=== PATIENT | male | born 1955 | race Caucasian/White ===

== ENCOUNTER 2017-04-30 09:28 | Emergency (ER) | payer OTHER ==
[~2017-04-30] VITALS: Ht 177.8 cm; Wt 93.0 kg
[~2017-04-30 09:28] MED LIST: LISI-363 PO
[2017-04-30 09:30] VITALS: BP 130/80; PULSE 69; RESP 14; TEMP 98.3; O2SAT 98
[2017-04-30] MEDS ORDERED: LISI10TA3 PO (09:42)
--- NOTE | 2017-04-30 09:57 | PD ---
HPI Chief Complaint: Injury Time Seen by Provider: 09:54 Travel History International Travel<30 days: No Contact w/Intl Traveler<30days: No Traveled to known affect area: No History of Present Illness HPI 61 YO M presents to the ED for evaluation of right foot pain. Onset this AM at 6pm. Patient states that he was pulling a bouncer behind him, the dumpster partially rolled over his right foot. He reports hearing a few loud cracks at the time of the accident. He has been ambulatory. He denies pain at rest but states that weightbearing and ambulation elicits pain. Denies numbness, tingling, weakness, limitations to range of motion of the extremity. Denies previous injury to that area. No treatment at the home. PFSH Past Medical History Cardiovascular Problems: Yes Diminished Hearing: No Hypertension: Yes Tetanus Vaccination: < 5 Years Influenza Vaccination: Yes Past Surgical History Oral Surgery: Yes Tonsillectomy: Yes Social History Alcohol Use: Yes ("very little") Tobacco Use: No Substance Use: Yes (marijuana) Allergies-Medications (Allergen,Severity, Reaction): Coded Allergies: No Known Allergies (Unverified , 04/30/17) Reported Meds & Prescriptions Reported Meds & Active Scripts Active Reported Lisinopril 10 Mg Tab 10 Mg PO DAILY Review of Systems Except as stated in HPI: all other systems reviewed are Neg Physical Exam Narrative GENERAL: Well-nourished, well-developed pleasant white male in no acute distress. SKIN: Focused skin assessment warm/dry. HEAD: Normocephalic. EYES: No scleral icterus. No injection or drainage. NECK: Supple, trachea midline. No JVD or lymphadenopathy. CARDIOVASCULAR: Regular rate and rhythm without murmurs, gallops, or rubs. RESPIRATORY: Breath sounds equal bilaterally. No accessory muscle use. GASTROINTESTINAL: Abdomen soft, non-tender, nondistended. MUSCULOSKELETAL: No cyanosis, or edema. FOCUSED RIGHT LOWER EXTREMITY EXAM: 2+ DP pulse. Patient retains full, active, painless range of motion of the ankle. Wiggling the toes elicits pain. There is tenderness to palpation along the lateral midfoot. No base of the fifth tenderness. No edema. No ecchymosis. Neurovascularly intact. BACK: Nontender without obvious deformity. No CVA tenderness. Data Data Last Documented VS Vital Signs Date Time Temp Pulse Resp B/P Pulse Ox O2 Delivery O2 Flow Rate FiO2 04/30/17 09:43 Room Air 04/30/17 09:30 98.3 69 14 130/80 98 Orders Foot, Complete ([id number]) (04/30/17 09:57) Ice/Cold Pack (04/30/17 09:57) Ibuprofen (Motrin) (04/30/17 10:00) MDM Medical Decision Making Medical Screen Exam Complete: Yes Emergency Medical Condition: Yes Differential Diagnosis Musculoskeletal pain versus sprain versus fracture versus other Narrative Course 61 YO M presents to the ED for evaluation of right foot pain. Onset this AM at 6pm. Patient states that he was pulling a bouncer behind him, the dumpster partially rolled over his right foot. He reports hearing a few loud cracks at the time of the accident. He has been ambulatory. He denies pain at rest but states that weightbearing and ambulation elicits pain. Denies numbness, tingling, weakness, limitations to range of motion of the extremity. Denies previous injury to that area. Vitals reviewed. Physical exam reveals a pleasant white male in no acute distress. There is tenderness to palpation of the lateral mid foot but the physical exam is otherwise unremarkable. Patient was administered ice pack and 100 mg ibuprofen. X-ray of the foot reveals no acute bony injury by my read. This is contusion of the foot. 4 inch Avel was applied. He is instructed to rest, ice, elevate the foot, return to normal, gentle activities as tolerated, take medications as prescribed, follow up with the computer instructor should symptoms persist. He indicated understanding of instructions and is agreeable to the care plan. He is stable and discharged home. Diagnosis Primary Impression: Contusion of right foot Qualified Code: S90.31XA - Contusion of right foot, initial encounter Referrals: Advertising Statistical Clerk Patient Instructions: Contusion in Adults (ED), General Instructions Additional Instructions: Rest, ice, elevate the extremity. Apply ice no longer than 10-15 minutes per hour a few times a day. 800 mg ibuprofen up to 3 times a day as needed to reduce pain and inflammation. Return to normal, gentle activity as tolerated. No running, jumping activities for the next few weeks. Follow up with computer instructor or your primary care provider. Return to the ED for any urgent or emergent medical condition. Med/Other Pt SpecificInfo: Prescription(s) given Scripts Ibuprofen 600 Mg Cii644 Mg PO Q8HR #15 TAB Ref 0 Prov:Moo Wasserman MD 04/30/17 Disposition: 01 DISCHARGE HOME Condition: Stable Nora Malin Apr 30, 2017 09:57
[2017-04-30] MEDS ORDERED: IBUPROFEN 800 MG TAB PO ONE (10:00)
[2017-04-30] MEDS ORDERED: IBUP-232 PO (10:57)
--- NOTE | 2017-04-30 11:29 | RADRPT ---
EXAM DATE/TIME: 04/30/2017 10:30 [facility] COMPARISON: No previous studies available for comparison. INDICATIONS : Dumpster rolled over right foot this morning, pain along lateral side , 4th and 5th metatarsals MEDICAL HISTORY : None. SURGICAL HISTORY : None. ENCOUNTER: Initial ACUITY: 1 day PAIN SCORE: 8/10 LOCATION: Right foot FINDINGS: No definite fractures, or dislocations are identified. No definite lytic or sclerotic lesion is seen . Calcaneal spurs are present at the attachment site of the plantar aponeurosis and Achilles tendon. CONCLUSION: Chronic changes and no evidence for acute fracture. Ozzie Doty MD on April 30, 2017 at 11:26 Board Certified Radiologist. This report was verified electronically.
== END 2017-04-30 11:11 | disposition home or self-care (01) ==
LOC: NEPK 09:28
DX: S90.31XA Contusion of right foot, initial encounter (principal); W23.0XXA Caught, crushed, jammed, or pinched between moving objects, initial encounter; Y93.89 Activity, other specified
CPT/HCPCS: 73630; 99283